=== PATIENT | female | born 1990 ===

== ENCOUNTER 2018-02-24 15:20 | Observation (INO) | payer MEDICAID | END 2018-02-24 17:25 | disposition home or self-care (01) | DRG 566 | LOC: LDRP 15:20 | PROVIDERS: ADMIT Obstetrics & Gynecology; ATTEND Obstetrics & Gynecology | DX: O62.9 Abnormality of forces of labor, unspecified (principal); Z3A.39 39 weeks gestation of pregnancy | CPT/HCPCS: 59025; 76805; 81002; G0378 ==